=== PATIENT | male | born 1945 | race Hispanic/Latino ===

== ENCOUNTER 2018-05-10 07:29 | Day surgery (SDC) | payer MEDICARE, OTHER ==
[2018-05-02 10:31] VITALS: BMI 22.8
--- NOTE | 2018-05-10 05:29 | HP ---
REASON FOR ADMISSION: Left heart catheterization, possible angioplasty, abnormal stress test, CAD, hyperlipidemia, hypertension, COPD. BRIEF CLINICAL HISTORY: This is a 72-year-old male with past medical history significant for coronary artery disease, status post stent in 2002, complaining palpitation, hypertension, hyperlipidemia, had abnormal stress test, so patient is scheduled for elective cardiac cath, possible angioplasty. PAST MEDICAL HISTORY: Significant for hyperlipidemia, hypertension, coronary artery disease, status post PTCA in 2002. RECENT CARDIAC WORKUP: As follows, patient had a stress test, Myoview, walk for 10 minutes 2 seconds under Mahesh protocol, stopped due to fatigue, achieved 83% of predicted heart rate. No chest pain. ST depression, less than 1 mm in II, III, aVF. Nuclear component shows probably abnormal myocardial perfusion study, partially reversible apical and inferior as well as inferoseptal reversible ischemia, in comparison with last study on 12/18/2014, these ischemic changes appeared new, ejection fraction calculated at 47% dated 04/11/2018. Patient also had echocardiography on 04/11/2018 that revealed normal chamber size, ejection fraction 50% low normal, no aortic regurgitation present, mild tricuspid regurgitation, RV systolic pressure 29, [id number] mitral regurgitation. SOCIAL HISTORY: Denies any smoking, denies any history of alcohol abuse. CURRENT MEDICATIONS: Patient is taking metoprolol tartrate 25 mg every p.m., atorvastatin 20 mg daily, fish oil, multivitamin, cod liver oil, aspirin 81 mg daily, ascorbic acid, diazepam 5 mg daily, Spiriva inhaler, nitroglycerin stat, chondroitin capsule, albuterol. ALLERGIES: LATEX. REVIEW OF SYSTEMS: As per HPI. PHYSICAL EXAMINATION: VITAL SIGNS: As follows, height of the patient 6 feet 2 inches, weight of the patient 178 pounds, body mass index 22.9 kg/sq m. Temperature afebrile, heart rate 70, blood pressure 130/82. HEENT: PERRLA. Extraocular muscles intact. NECK: Supple. No carotid bruits or thyromegaly. CHEST: Clear to auscultation. HEART: S1 and S2 regular. ABDOMEN: Soft. EXTREMITIES: Clubbing and cyanosis, negative. LABORATORY DATA: Blood workup pending. IMPRESSION: A 72-year-old male with past medical history significant for coronary artery disease, status post percutaneous transluminal coronary angioplasty in 2002, abnormal stress test, history of hypertension, hyperlipidemia, mild mitral regurgitation, mild tricuspid regurgitation, abnormal stress test, decreased left ventricular function, possible ischemic cardiomyopathy, ejection fraction 43%, apical, inferior and inferolateral reversible ischemia, changes new from 2015. RECOMMENDATION: We will load aspirin and Plavix. Risks, benefits and alternatives discussed with the patient. Patient agreed. We will proceed for cardiac catheterization. Further recommendations after cardiac catheterization. We will follow with you. Thank you, Dr. Mayes, for providing us the opportunity in taking care of patient, Wilber Apple. Jerome Dukes MD cc: Dr. Zelaya cc: Dr. Mayes
[2018-05-10 08:15] VITALS: O2SAT 96
[2018-05-10 08:23] LABS: BASO # 0.04 K/mm3 (0.0-2.0); BASO % 0.7 % (0.0-3.0); EOS # 0.3 (0.0-0.7); GRAN # 3.43 (1.4-6.5); GRAN % 59.6 % (50.0-68.0); HEMOGLOBIN 14.9 g/dL (14.0-18.0); LYMPH # 1.5 (1.2-3.4); LYMPH % 25.7 % (22.0-35.0); MEAN CELL VOLUME 97.5 fl (80.0-105.0); MEAN CORPUSCULAR HEMOGLOBIN 34.5 pg (25.0-35.0); MEAN CORPUSCULAR HGB CONC 35.4 g/dl (31.0-37.0); MEAN PLATELET VOLUME 10.8 fl (7.0-11.0); MONO # 0.5 (0.1-0.6); RBC 4.32 10^6/uL (3.5-6.1); RED CELL DISTRIBUTION WIDTH 12.4 % (11.5-14.5); WHITE BLOOD COUNT 5.8 10^3/ul (4.5-11.0)
[2018-05-10 08:32] LABS: BLOOD UREA NITROGEN 11 mg/dL (7-21); CALCIUM 9.1 mg/dL (8.4-10.5); GFR NON-AFRICAN AMERICAN > 60; HDL CHOLESTEROL 55 mg/dL (29-60); INR 0.99; PARTIAL THROMBOPLASTIN TIME 31.1 Seconds (25.1-36.5); PROTHROMBIN TIME 11.4 SECONDS (9.4-12.5)
[2018-05-10 08:42] LABS: LDL CHOLESTEROL 67 mg/dL (0-129)
[2018-05-10] MEDS ORDERED: Verapamil 2 ML ONE (08:47)
[2018-05-10] MEDS ORDERED: Iodixanol 320 MG/ML 200 ML BOTTLE IV ONE (08:47)
[2018-05-10] MEDS ORDERED: Lidocaine 2% PF (10 ml) Amp ONE (08:47)
[2018-05-10] MEDS ORDERED: Midazolam 2 MG/2 ML VIAL ONE (08:56)
[2018-05-10] MEDS ORDERED: Eptifibatide 20 mg/10mL Inj IVP ONE (09:45)
[2018-05-10] MEDS ORDERED: Phenylephrine 10 mg/ml Inj ONE (09:52)
[2018-05-10] MEDS ORDERED: Sodium Chloride 0.9% 1,000 ML IV SCH (10:30)
[2018-05-10 11:13] VITALS: TEMP 98.9
--- NOTE | 2018-05-10 11:18 | CPOSTOP ---
DATE: 05/10/2018 CARDIOVASCULAR LAB POST PROCEDURE NOTE DICTATING PHYSICIAN: Jerome Dukes MD DAMASCENER: Dajuan hamm RN. TYPE OF ANESTHESIA: Moderate conscious sedation. Total 2 mg of Versed, 100 of fentanyl given. Periodically started 1 mg Versed, 50 of fentanyl. PRE-PROCEDURE DIAGNOSES: Unstable angina, abnormal stress test, history of coronary artery disease in the past. PROCEDURE PERFORMED: 1. Left heart catheterization. 2. Attempted percutaneous transluminal coronary angioplasty of right coronary artery chronic total occlusion. FINDINGS: RCA 99% with bridge collaterals, very tortuous distal RCA with 99% stenosis with bridge collaterals. FINAL DIAGNOSIS: Single-vessel disease. POST PROCEDURE CONDITION: Post procedure, the patient's condition is stable. VASCULAR ACCESS SITE: Left radial artery. CLOSURE DEVICE: TR Band. TOTAL RADIATION DOSE: 15,280.3 milligray unit. TOTAL FLUORO TIME: 13.8 minutes. Jerome Dukes MD MTDJunie
[2018-05-10 14:00] VITALS: RESP 16
[2018-05-10] MEDS ORDERED: Bacitracin 500 Units/gm Oint Foilpak UD TOP ONE (14:57)
--- NOTE | 2018-05-10 15:00 | CARD ---
APPROVED REPORT Date of service: 05/10/2018 EKG Measurement Heart [id number] <Conclusion> Normal sinus rhythm Normal ECG
[2018-05-10 16:02] VITALS: BP 115/68; PULSE 71
--- NOTE | 2018-05-10 18:07 | CARD ---
APPROVED REPORT Date of service: 05/10/2018 Procedure(s) performed: Left Heart Catheterization PTCA with Stenting of RCA Attempted .... Unsuccessful HISTORY The patient is a 72 year-old male with a history of : most recent EF: 47%. (EF Method: RADIONUCLIDE), chronic lung disease, previous diagnostic cath, previous PCI (The PCI date was 07/31/2002), hypertension , dyslipidemia , had an abnormal Stres test ,Reversible Apical,Inferior and Inferoseptal ischemia.. INDICATION The indication(s) include : positive stress test. CASE TECHNIQUE The patient was brought electively to the Cardiac Catheterization Laboratory in a fasting state and was prepped and draped in a sterile manner. The left wrist was infiltrated with 2% Lidocaine subcutaneous anesthesia. A 6FR GLIDESbMenuTH ACCESS KIT sheath was inserted into the left radial artery without difficulty. Coronary angiography was performed using coronary diagnostic catheters. The left coronary system was accessed and visualized with a Diagnostic ,5 Fr Jl 4.0 catheter. The right coronary system was accessed and visualized with a Diagnostic ,5 Fr AL 1 catheter. The left ventricle was accessed and visualized with a 5F PIGTAIL 145 CATH DXT 110 CM catheter. Left ventricular/Aortic Valve gradient assessed on pullback. Left ventriculogram was performed in DAVIS projection. Closure device was deployed with a Fr TR Band (Regular) without any complications. The patient tolerated the procedure well and there were no complications associated with the procedure. Vessel Analysis The patient's coronary anatomy is right dominant. The left main coronary artery is a medium size vessel without significant stenosis. The left main bifurcates to the left anterior descending and circumflex. The left anterior descending artery is a medium size vessel with diffuse calcification noted throughout this vessel and without significant stenosis. There is a 30% stenosis in the proximal segment. The first diagonal branch is a medium size vessel with diffuse calcification noted throughout this vessel and without significant stenosis. The second diagonal branch is a large size vessel with diffuse calcification noted throughout this vessel and without significant stenosis. The circumflex artery is a medium size vessel with diffuse calcification noted throughout this vessel and without significant stenosis. There is a 40% stenosis in the proximal segment. The first obtuse marginal branch is a medium size vessel without significant stenosis. The right coronary artery is a large size vessel with diffuse calcification noted throughout this vessel and with significant stenosis. There is a 99% stenosis in the mid to distal segment with Two hair pin turns. The right posterior descending artery is a medium size vessel with diffuse calcification noted throughout this vessel and without significant stenosis. Well collateralized from LAD The right posterolateral branch is a medium size vessel with diffuse calcification noted throughout this vessel and without significant stenosis. Left Ventricle The left ventricle is Borderline enlarged in size with Mildly decreased contractility. Ischemic cardiomyopathy. The left ventricular ejection fraction is estimated to be 45-50%. The left ventricular end diastolic pressure is 6-8 mmHg. There was no gradient across the aortic valve upon pullback. PCI Technique Lesion Anticoagulation was achieved with Heparin and integrellin bollus only. Percutaneous coronary intervention was performed on the mid to right right coronary artery. The lesion stenosis prior to intervention was 99% with KRYSTIN 1 flow. A 6 Fr AL 0.75 Guide Catheter was used to engage the ostium. A 0.014 x 182 cm Choice PT Extra Support Interventional Guidewire was used to cross the lesion. BALLOON DILATION A Balloon catheter 2.0 x 15 mm Sprinter RX was inserted and inflated up to joel for seconds. COMMENTS Unable to cross B/c of two hair pin turns and small aneurysm in stenotic area and coranary wires were curling in aneurysm/ hair pin turns Conclusion Critical Mid to Distal RCA 99% stenosis with two small Aneurysm and hair pin turns. Very well collateralized from LAD. Mildly decreased Lv Fx. EF-45-50%, EDp-6-8 mmof Hg. Unable to cross, wire keep on curling in aneurysm/ hair pin turns. Recommendations Aggressive Medical TherapyCardiac Risk Reduction Program Beta BLockers Nitrattes, Statin, ASA and DANTE inhibitors as Bp is tolerated. May also consider adding Ranexa. CC; Drs. Martinez/ Nathalie.
== END 2018-05-10 16:30 | disposition home or self-care (01) ==
LOC: CATH 07:29 → 2RSO 10:53 → CATH 16:30
PROVIDERS: ATTEND Internal Medicine Cardiovascular Disease
DX: I25.110 Atherosclerotic heart disease of native coronary artery with unstable angina pectoris (principal); I25.41 Coronary artery aneurysm; I25.5 Ischemic cardiomyopathy; I10 Essential (primary) hypertension; I08.1 Rheumatic disorders of both mitral and tricuspid valves; J44.9 Chronic obstructive pulmonary disease, unspecified; E78.5 Hyperlipidemia, unspecified; Z95.5 Presence of coronary angioplasty implant and graft